=== PATIENT | female | born 1965 | race Caucasian/White ===

== ENCOUNTER 2021-08-15 08:51 | Observation (INO) | payer OTHER ==
[2021-08-12 10:23] LABS: BASOPHILS % (AUTO) 0.9 % (0-1); EOSINOPHILS # (AUTO) 0.1 X10'3 (0-0.9); EOSINOPHILS % (AUTO) 2.7 % (0-6); LYMPHOCYTES # (AUTO) 1.1 X10'3 (1.1-4.8); LYMPHOCYTES % (AUTO) 23.9 % (21-51); MEAN CORPUSCULAR HEMOGLOBIN 26.6 PG (27.0-31.0); MEAN CORPUSCULAR HGB CONC 32.6 g/dL (33.0-36.5); MEAN CORPUSCULAR VOLUME 81.8 FL (78-98); MEAN PLATELET VOLUME 7.8 FL (7.4-10.4); MONOCYTES # (AUTO) 0.2 X10'3 (0-0.9); MONOCYTES % (AUTO) 4.9 % (2-12); NEUTROPHILS # (AUTO) 3.2 X10'3 (1.8-7.7); NEUTROPHILS % (AUTO) 67.6 % (42-75); PRE OP HEMATOCRIT 38.4 % (35.0-45.0); PRE OP HEMOGLOBIN 12.5 g/dL (12.0-16.0); PRE OP PLATELET COUNT 269 X10'3 (140-440); RED CELL DISTRIBUTION WIDTH 16.8 % (11.5-14.5)
[2021-08-12 10:36] LABS: ALBUMIN 3.9 G/DL (3.4-5.0); ALBUMIN/GLOBULIN RATIO 1.1 (1.1-1.5); ALKALINE PHOSPHATASE 76 IU/L (46-116); BLOOD UREA NITROGEN 9 MG/DL (7-18); BUN/CREATININE RATIO 10.7 (6.6-38.0); CALCIUM 8.3 MG/DL (8.5-10.1); CHLORIDE 102 MMOL/L (99-107); CREATININE 0.84 MG/DL (0.40-0.90); PRE OP ALT 54 U/L (30-65); PRE OP ANION GAP 10 (8-16); PRE OP AST 32 U/L (10-37); PRE OP BILIRUB, TOTAL 0.3 MG/DL (0.0-1.0); PRE OP GLUCOSE 96 MG/DL (70-104); PRE OP POTASSIUM 4.2 MMOL/L (3.4-5.1); PRE OP SODIUM 137 MMOL/L (135-145); TOTAL CARBON DIOXIDE 25.5 MMOL/L (24-32); TOTAL PROTEIN 7.6 G/DL (6.4-8.2); eGFR 71 ML/MIN
[2021-08-12 10:48] LABS: HCG SERUM QL NEGATIVE
[~2021-08-15] VITALS: Ht 170.2 cm; Wt 92.4 kg
[2021-08-15] VITALS (23 sets, daily range): BP systolic 94–159; BP diastolic 51–114
[~2021-08-15 08:51] MED LIST: CETI-90 PO; LORA-269 PO; OMEP20TA23 PO; [UNRECOGNIZED DRUG - OTHER] PO; ceFOXitin 2GM-NS 100mL ADDvant 100 ML IV ONE; famotidine 20mg tablet PO ONE; ringers solution, lacted 1,000 ML IV SCH
[2021-08-15] MEDS ORDERED: labetalol 20mg/4ml (5mg/ml) syringe IV PRN (10:20)
[2021-08-15] MEDS ORDERED: ringers solution, lacted 1,000 ML IV SCH (10:20)
[2021-08-15] MEDS ORDERED: hydrALAZINE 20mg/ml inj. IV PRN (10:20)
[2021-08-15] MEDS ORDERED: ondansetron/PF 4mg/2ml inj IV PRN ×2 (10:20→15:50)
[2021-08-15] MEDS ORDERED: morphine 2 MG/ML inj. syringe IV PRN (10:20)
[2021-08-15] MEDS ORDERED: fentaNYL/PF 50MCG/1 ML 2ML syringe IV PRN ×2 (10:20)
[2021-08-15] MEDS ORDERED: morphine 4 MG/ML inj SYRINge IV PRN (10:20)
--- NOTE | 2021-08-15 10:25 | NUR ---
PTS BLOOD PRESSURE ELEVATED ON ARRIVAL 152/ 114 , RECHECKED 45 MIN LATER REMAINS 159/[address] STOCK NOTIFIED
[2021-08-15] MEDS ORDERED: meperidine/PF 25mg/ml syringe IV ONE (11:35)
[2021-08-15] MEDS ORDERED: ketorolac trometh. 30mg/ml inj. IV ONE (11:40)
[2021-08-15] MEDS ORDERED: ceFAZolin 1000mg inj ONE (12:35)
[2021-08-15] MEDS ORDERED: LIDOcaine 1% W/epiNEPHrine 1:100,000 20ml vial ONE (12:35)
[2021-08-15] MEDS ORDERED: clindamycin phosphate 40gm vag cream ONE (12:35)
[2021-08-15] MEDS ORDERED: BUPIVAcaine 0.5% inj/PF 30 ML ONE (12:35)
[2021-08-15] MEDS ORDERED: neostigmine methylsulfate 1 MG/ML 10ml vial ONE (12:51)
[2021-08-15] MEDS ORDERED: labetalol 20mg/4ml (5mg/ml) syringe IV ONE (12:51)
[2021-08-15] MEDS ORDERED: dexamethasone sod phosphate 10mg/ml inj ONE (12:51)
[2021-08-15] MEDS ORDERED: sevoflurane 250ml liquid IH ONE (12:51)
[2021-08-15] MEDS ORDERED: fentaNYL /PF 50mcg/ml 5ml ampule ONE (13:00)
[2021-08-15] MEDS ORDERED: midazolam 1 mg/ML 2ml injection ONE (13:00)
[2021-08-15] MEDS ORDERED: LIDOcaine 2% (20mg/ml) 5ml vial ONE (13:07)
[2021-08-15] MEDS ORDERED: propofol inj 20 ML IV ONE (13:07)
[2021-08-15] MEDS ORDERED: rocuronium 10mg/ml inj IV ONE ×2 (13:08)
[2021-08-15] MEDS ORDERED: ondansetron/PF 4mg/2ml inj ONE (13:09)
[2021-08-15] MEDS ORDERED: glycopyrrolate 0.2mg/ml inj ONE (13:09)
[2021-08-15] MEDS ORDERED: fluoroscein sod 10% (100mg/ml) 5ml vial ONE (14:51)
[2021-08-15] MEDS ORDERED: LORazepam 2 mg/ml vial IV PRN (15:50)
[2021-08-15] MEDS ORDERED: oxyCODONE/APAP 5-325mg tablet PO PRN ×2 (15:50)
[2021-08-15] MEDS ORDERED: normal saline 500ML IV soln IV PRN (15:50)
[2021-08-15] MEDS ORDERED: temazepam 15mg capsule PO PRN (15:50)
[2021-08-15] MEDS ORDERED: naloxone 0.4 mg/ml inj IV PRN ×3 (15:50→15:55)
[2021-08-15] MEDS ORDERED: diphenhydrAMINE 50 mg/ml inj IV PRN (15:50)
[2021-08-15] MEDS ORDERED: mag hydrox/Alum hydrox/simeth 30ml oral suspension PO PRN (15:50)
--- NOTE | 2021-08-15 15:52 | NUR ---
Received from OR via BED IN STABLE CONDITION , accompanied by Anesthesiologist and PUNCHBOARD FILLING MACHINE OPERATOR report given by PUNCHBOARD FILLING MACHINE OPERATOR AND Anesthesiolgist. Addendum: 08/15/21 at 1554 by Charlotte Ivey RN Amended: Links added.
[2021-08-15] MEDS ORDERED: normal saline 1000ml 1,000 ML IV SCH (15:55)
[2021-08-15] MEDS ORDERED: PCA WASTE DOCUMENTATION MC SCH (16:25)
[2021-08-15] MEDS: ringers solution, lacted 1,000 ML IV SCH ×4 (16:35→23:32)
[2021-08-15] MEDS: HYDROmorph/NS 0.2 mg/ml PCA 100 ML IV SCH ×4 (17:23→23:00)
--- NOTE | 2021-08-15 17:42 | NUR ---
PATIENT DISCHARGED FOR PACU IN STABLE CONDITION AFTER REPORT GIVEN TO RN TAKING OVER PATIENTS CARE. PATIENT TRANSFERRED TO ROOM 4010B WITH RN X2. Addendum: 08/15/21 at 1745 by Charlotte Ivey RN Amended: Links added.
--- NOTE | 2021-08-15 17:53 | NUR ---
Received patient to room 4010B. Patient alert and oriented with c/o pain to abd. Patient has CADD and educated on use. Spouse at bedside. Abd with x3 lapsites with CAMILO lopez. Escobar cath draining to gravity, peripad with no drainage.
[2021-08-15] MEDS: simethicone 80mg chew tab PO SCH (18:04)
[2021-08-15] MEDS: ketorolac trometh. 30mg/ml inj. IV PRN (18:17)
--- NOTE | 2021-08-15 18:36 | NUR ---
Problems reprioritized. Patient report given, questions answered & plan of care reviewed with JOSH Luis.
[2021-08-15] MEDS: docusate sod 100mg capsule PO SCH (19:47)
[2021-08-15] MEDS ORDERED: benzocaine/menthol oral lozeng 1 EACH BOX MM PRN (21:30)
[2021-08-15] MEDS ORDERED: proMETHazine 25mg rectal suppository RC PRN (21:30)
[2021-08-15] MEDS ORDERED: proCHLORperazine 10 MG/2 ml inj IV PRN (21:30)
--- NOTE | 2021-08-15 21:46 | NUR ---
Notified Dr Gardner that patient has vomited 3x this shift. Zofran did not relieve symptoms. New antinausea medication order given, Instructed patient to back off using CADD pump,until nausea has subsided, and sips and chips for now. Will continue to monitor .
[2021-08-16] MEDS: ketorolac trometh. 30mg/ml inj. IV PRN ×2 (00:36→07:19)
[2021-08-16] MEDS: HYDROmorph/NS 0.2 mg/ml PCA 100 ML IV SCH ×3 (01:00→05:00)
[2021-08-16 02:00] VITALS: BP 137/79
[2021-08-16 06:00] VITALS: BP 127/73
--- NOTE | 2021-08-16 06:36 | NUR ---
I agree with documentation , and report give to JOSH Espinoza by Maximiliano RN student
--- NOTE | 2021-08-16 06:36 | NUR ---
Problems reprioritized. Patient report given, questions answered & plan of care reviewed with JOSH Espinoza.
--- NOTE | 2021-08-16 06:55 | NUR ---
Patient in room ORTHO 4010. I have received report from Toby MORENO and had the opportunity to ask questions and assume patient care.
[2021-08-16] MEDS: docusate sod 100mg capsule PO SCH (07:20)
[2021-08-16] MEDS: simethicone 80mg chew tab PO SCH ×2 (07:20→13:15)
[2021-08-16 07:24] LABS: BASOPHILS % (AUTO) 0 % (0-1); EOSINOPHILS % (AUTO) 0 % (0-6); HEMATOCRIT 34.8 % (35.0-45.0); HEMOGLOBIN 11.4 g/dl (12.0-16.0); LYMPHOCYTES # (AUTO) 0.5 X10'3 (1.1-4.8); LYMPHOCYTES % (AUTO) 5.2 % (21-51); MEAN CORPUSCULAR HEMOGLOBIN 27.3 PG (27.0-31.0); MEAN CORPUSCULAR HGB CONC 32.9 g/dL (33.0-36.5); MEAN PLATELET VOLUME 7.9 FL (7.4-10.4); MONOCYTES # (AUTO) 0.6 X10'3 (0-0.9); MONOCYTES % (AUTO) 6.2 % (2-12); NEUTROPHILS # (AUTO) 9.2 X10'3 (1.8-7.7); NEUTROPHILS % (AUTO) 88.6 % (42-75); PLATELET COUNT 280 X10'3 (140-440); RED BLOOD COUNT 4.19 X10'6 (4.20-5.60); RED CELL DISTRIBUTION WIDTH 17.3 % (11.5-14.5); WHITE BLOOD COUNT 10.4 X10'3 (4.5-11.0)
[2021-08-16 07:51] LABS: ALBUMIN 3.6 G/DL (3.4-5.0); ANION GAP 13 (8-16); BLOOD UREA NITROGEN 11 MG/DL (7-18); CHLORIDE 104 MMOL/L (99-107); GLUCOSE 134 MG/DL (70-104); POTASSIUM 3.7 MMOL/L (3.5-5.1); SODIUM 141 MMOL/L (135-145); TOTAL CARBON DIOXIDE 24.1 MMOL/L (24-32); eGFR 52 ML/MIN
[2021-08-16 10:00] VITALS: BP 124/77
[2021-08-16] MEDS ORDERED: oxyCODONE/APAP 5-325mg tablet PO PRN (11:25)
[2021-08-16] MEDS ORDERED: acetaminophen 325mg tablet PO PRN (13:05)
--- NOTE | 2021-08-16 14:08 | NUR ---
IV SL to Lt hand dc'd with cath tip intact. Site clear w/ no swelling or redness. Dry drsg applied to site.
== END 2021-08-16 14:00 | disposition home or self-care (01) ==
LOC: PAS 08:51 → ORTHO 4S 15:49
PROVIDERS: ADMIT Obstetrics & Gynecology; ATTEND Obstetrics & Gynecology
DX: D25.9 Leiomyoma of uterus, unspecified (principal); Z20.822 Contact with and (suspected) exposure to COVID-19; N81.4 Uterovaginal prolapse, unspecified; N92.0 Excessive and frequent menstruation with regular cycle; N39.3 Stress incontinence (female) (male); K21.9 Gastro-esophageal reflux disease without esophagitis; J45.909 Unspecified asthma, uncomplicated; F41.8 Other specified anxiety disorders; E66.9 Obesity, unspecified; Z91.040 Latex allergy status; Z79.899 Other long term (current) drug therapy
CPT/HCPCS: 36415; 51992; 52000; 57250; 58552; 58578; 80048; 80053; 82948; 84703; 85025; 86885; 86900; 86901; 87081; 87635; 93005; 96365; 96366; 96375; 96376; C1758; C1771; C9803; G0378; J0690; J0694; J0780; J1100; J1170; J1885; J2060; J2250; J2405; J2704; J2710; J3010; J3490; J7030; J7120; S0020; A4355; A4618; A7000